=== PATIENT | male | born 1995 | race Caucasian/White ===

== ENCOUNTER 2017-04-01 06:22 | Observation (INO) | payer SELFPAY ==
[2017-04-01] VITALS (8 sets, daily range): BP systolic 90–142; BP diastolic 63–80; PULSE 76–96; RESP 18–20; TEMP 96.1–99.6; O2SAT 96–100
[~2017-04-01] VITALS: Ht 182.9 cm; Wt 71.4 kg
[2017-04-01] MEDS ORDERED: SODIUM CHLOR 0.9% 1000 ML INJ 1,000 ML IV ONE (07:05)
[2017-04-01] MEDS ORDERED: ONDANSETRON HCL 4 MG/2 ML VIAL IV PUSH ONE (07:15)
[2017-04-01] MEDS ORDERED: LORazepam 2 MG/ML VIAL IV PUSH ONE (07:15)
[2017-04-01] MEDS ORDERED: SODIUM CHLORIDE 0.9% FLUSH 10 ML FLUSH IVF PRN (07:15)
[2017-04-01 07:23] LABS: AUTOMATED NEUTROPHIL # 16.6 TH/MM3 (1.8-7.7); BASOPHIL # 0.1 TH/MM3 (0-0.2); BASOPHIL % 0.7 % (0.0-2.0); EOSINOPHIL # 0.1 TH/MM3 (0-0.4); EOSINOPHIL % 0.5 % (0.0-4.0); HEMATOCRIT 47.4 % (39.0-51.0); LYMPH % 8.2 % (9.0-44.0); LYMPHOCYTE # 1.5 TH/MM3 (1.0-4.8); MEAN CELL VOLUME 88.4 FL (80.0-100.0); MEAN CORPUSCULAR HEMOGLOBIN 30.7 PG (27.0-34.0); MEAN CORPUSCULAR HGB CONC 34.7 % (32.0-36.0); MONO % 2.1 % (0.0-8.0); NEUT % 88.5 % (16.0-70.0); PLATELET COUNT 281 TH/MM3 (150-450); RED BLOOD COUNT 5.36 MIL/MM3 (4.50-5.90); RED CELL DISTRIBUTION WIDTH 11.8 % (11.6-17.2); WHITE BLOOD COUNT 18.7 TH/MM3 (4.0-11.0)
[2017-04-01 07:29] LABS: CHLORIDE 102 MEQ/L (98-107); POTASSIUM 3.6 MEQ/L (3.5-5.1); SODIUM (NA) 140 MEQ/L (136-145)
[2017-04-01 07:32] LABS: ANION GAP 21 MEQ/L (5-15); BICARBONATE 16.8 MEQ/L (21.0-32.0)
[2017-04-01 07:33] LABS: BLOOD UREA NITROGEN 17 MG/DL (7-18)
[2017-04-01 07:35] LABS: GLOMERULAR FILTRATION RATE 69 ML/MIN (>89)
--- NOTE | 2017-04-01 07:35 | PD ---
HPI Chief Complaint: Seizure Time Seen by Provider: 07:04 Travel History International Travel<30 days: No Contact w/Intl Traveler<30days: No Traveled to known affect area: No History of Present Illness HPI 21-year-old male notes drinking alcohol at 8 PM last night in excess. Patient does not recall event. EMS was not available when I evaluated the patient. Report from change of shift was that he had had a seizure. History is significantly limited. Patient denies prior history of seizure PFSH Past Medical History Medical History: Denies Significant Hx Diminished Hearing: No Tetanus Vaccination: < 5 Years Influenza Vaccination: No Past Surgical History Ear Surgery: Yes ("tubes in ears") Social History Alcohol Use: Yes (OFTEN) Tobacco Use: Yes (1 PPD) Substance Use: Yes (DRUG ABUSE - NARCOTICS) Allergies-Medications (Allergen,Severity, Reaction): Coded Allergies: No Known Allergies (Verified , 04/01/17) Reported Meds & Prescriptions Reported Meds & Active Scripts Active Active Prescriptions or Reported Medications Unobtainable Review of Systems Except as stated in HPI: all other systems reviewed are Neg Physical Exam Narrative General: 21 y/o patient in no apparent distress Skin: Warm and dry Eyes: Pupils equal NECK: no pain with range of motion in midline Cardiovascular: Regular rate and rhythm Respiratory: Normal respiratory effort noted, clear to auscultation bilaterally at apices Abdomen: soft, nontender, nondistended Back: No step-offs, midline spine nontender with palpation Extremities: No pain over main joints Neuro: awake, alert, sensation and motor grossly intact Data Data Last Documented VS Vital Signs Date Time Temp Pulse Resp B/P Pulse Ox O2 Delivery O2 Flow Rate FiO2 04/01/17 07:14 96 18 117/63 97 Room Air 04/01/17 06:36 97.7 Orders Complete Blood Count With Diff (04/01/17 07:05) Alcohol (Ethanol) (04/01/17 07:05) Drug Screen, Random Urine (04/01/17 07:05) Electrocardiogram (04/01/17 ) Ct Brain W/O Iv Contrast(Rout) (04/01/17 ) Blood Glucose (04/01/17 07:05) Ecg Monitoring (04/01/17 07:05) Iv Access Insert/Monitor (04/01/17 07:05) Oximetry (04/01/17 07:05) Comprehensive Metabolic Panel (04/01/17 07:05) Sodium Chlor 0.9% 1000 Ml Inj (Ns 1000 M (04/01/17 07:05) Sodium Chloride 0.9% Flush (Ns Flush) (04/01/17 07:15) Urinalysis - C+S If Indicated (04/01/17 07:05) Ct Cerv Spine W/O Contrast (04/01/17 ) Ondansetron Inj (Zofran Inj) (04/01/17 07:15) Lorazepam Inj (Ativan Inj) (04/01/17 07:15) Admit Order (Ed Use Only) (04/01/17 08:30) Labs Laboratory Tests Test 04/01/17 04/01/17 06:45 07:55 White Blood Count 18.7 TH/MM3 Red Blood Count 5.36 MIL/MM3 Hemoglobin 16.5 GM/DL Hematocrit 47.4 % Mean Corpuscular Volume 88.4 FL Mean Corpuscular Hemoglobin 30.7 PG Mean Corpuscular Hemoglobin 34.7 % Concent Red Cell Distribution Width 11.8 % Platelet Count 281 TH/MM3 Mean Platelet Volume 9.4 FL Neutrophils (%) (Auto) 88.5 % Lymphocytes (%) (Auto) 8.2 % Monocytes (%) (Auto) 2.1 % Eosinophils (%) (Auto) 0.5 % Basophils (%) (Auto) 0.7 % Neutrophils # (Auto) 16.6 TH/MM3 Lymphocytes # (Auto) 1.5 TH/MM3 Monocytes # (Auto) 0.4 TH/MM3 Eosinophils # (Auto) 0.1 TH/MM3 Basophils # (Auto) 0.1 TH/MM3 CBC Comment DIFF FINAL Differential Comment Sodium Level 140 MEQ/L Potassium Level 3.6 MEQ/L Chloride Level 102 MEQ/L Carbon Dioxide Level 16.8 MEQ/L Anion Gap 21 MEQ/L Blood Urea Nitrogen 17 MG/DL Creatinine 1.30 MG/DL Estimat Glomerular Filtration 69 ML/MIN Rate Random Glucose 103 MG/DL Calcium Level 8.7 MG/DL Total Bilirubin 0.9 MG/DL Aspartate Amino Transf 22 U/L (AST/SGOT) Alanine Aminotransferase 27 U/L (ALT/SGPT) Alkaline Phosphatase 95 U/L Total Protein 8.3 GM/DL Albumin 4.5 GM/DL Ethyl Alcohol Level LESS THAN 3 MG/DL Urine Collection Type CLEAN CATCH Urine Color YELLOW Urine Turbidity CLEAR Urine pH 5.5 Urine Specific [place] 1.022 Urine Protein 30 mg/dL Urine Glucose (UA) NEG mg/dL Urine Ketones 40 mg/dL Urine Occult Blood SMALL Urine Nitrite NEG Urine Bilirubin NEG Urine Leukocyte Esterase NEG Urine RBC 0-3 /hpf Microscopic Urinalysis Comment CULT NOT INDICATED Urine Opiates Screen POS Urine Barbiturates Screen NEG Urine Amphetamines Screen POS Urine Benzodiazepines Screen NEG Urine Cocaine Screen NEG Urine Cannabinoids Screen POS MDM Medical Decision Making Medical Screen Exam Complete: Yes Emergency Medical Condition: Yes Medical Record Reviewed: Yes (past history confirmed) Interpretation(s) EKG shows NSR, no ST elevation or depression, and no arrhythmias. No significant T-wave inversions. Last [address] 04/01/17 0000 Signed Impressions: Service Date/Time: Saturday, April 01, 2017 07:23 - CONCLUSION: No acute intracranial disease. Manuelito Gomes MD Cervical Spine CT 04/01/17 0000 Signed Impressions: Service Date/Time: Saturday, April 01, 2017 07:23 - CONCLUSION: 1. No fracture or subluxation. Manuelito Gomes MD CBC & BMP Diagram 04/01/17 06:45 Differential Diagnosis Electrolyte abnormality, alcohol abuse, intracranial Narrative Course Will check blood work, CT imaging and dose with Ativan and IV fluids and reevaluate ED workup shows negative alcohol level, urine drug screen is positive for amphetamines, opiates, marijuana; CT shows no acute bleed or fracture. Patient updated and initially hesitant to stay but understands the importance and agrees to admission for further testing. Physician Communication Physician Communication dr farrell agrees to admit Diagnosis Primary Impression: Seizure Scripts Unable to Obtain Active Prescriptions or Reported Meds Aurelia Quintero MD April 01, 2017 07:35
[2017-04-01 07:36] LABS: ALT (GPT) 27 U/L (12-78); AST (GOT) 22 U/L (15-37)
[2017-04-01 07:37] LABS: TOTAL BILIRUBIN ADULT 0.9 MG/DL (0.2-1.0)
[2017-04-01 07:39] LABS: ALKALINE PHOSPHATASE 95 U/L (45-117)
[2017-04-01 07:41] LABS: HEMO FLAGS DIFF FINAL
--- NOTE | 2017-04-01 07:47 | RADHPO ---
EXAM DATE/TIME: 04/01/2017 07:23 [facility] COMPARISON: No previous studies available for comparison. INDICATIONS : New onset seizure with headache. RADIATION DOSE: 57.55 CTDIvol (mGy) MEDICAL HISTORY : None SURGICAL HISTORY : None. ENCOUNTER: Initial ACUITY: 1 day PAIN SCALE: 3/10 LOCATION: cranial TECHNIQUE: Multiple contiguous axial images were obtained of the head. Using automated exposure control and adj ustment of the mA and/or kV according to patient size, radiation dose was kept as low as reasonably a chievable to obtain optimal diagnostic quality images. FINDINGS: CEREBRUM: The ventricles are normal for age. No evidence of midline shift, mass lesion, hemorrhage or acute in farction. No extra-axial fluid collections are seen. POSTERIOR FOSSA: The cerebellum and brainstem are intact. The 4th ventricle is midline. The cerebellopontine angle i s unremarkable. EXTRACRANIAL: The visualized portion of the orbits is intact. SKULL: The calvaria is intact. No evidence of skull fracture. CONCLUSION: No acute intracranial disease. Manuelito Gomes MD on April 01, 2017 at 7:45 Board Certified Radiologist. This report was verified electronically.
[2017-04-01 08:04] LABS: BLOOD, URINE SMALL (NEG); GLUCOSE,URINE NEG (NEG); KETONE, URINE 40 mg/dL (NEG); NITRITE,URINE NEG (NEG); PH, URINE 5.5 (5.0-8.5)
[2017-04-01 08:07] LABS: METHOD OF COLLECTION CLEAN CATCH; URINE COLOR YELLOW (YELLW/STRAW)
[2017-04-01 08:09] LABS: RBC, URINE 0-3 /hpf (0-3)
[2017-04-01 08:10] LABS: COMMENT (UR) CULT NOT INDICATED; CULTURE IF INDICATED CULT NOT INDICATED
[2017-04-01 08:13] LABS: AMPHETAMINE, URINE POS (NEG); BARBITURATES, URINE NEG (NEG); COCAINE, URINE NEG (NEG)
--- NOTE | 2017-04-01 08:14 | RADHPO ---
EXAM DATE/TIME: 04/01/2017 07:23 [facility] COMPARISON: No previous studies available for comparison. INDICATIONS : New onset seizure with headache. RADIATION DOSE: 25.61 CTDIvol (mGy) MEDICAL HISTORY : None SURGICAL HISTORY : None. ENCOUNTER: Initial ACUITY: 1 day PAIN SCALE: 3/10 LOCATION: neck TECHNIQUE: Volumetric scanning of the cervical spine was performed. Multiplanar reconstructions in the sagittal, coronal and oblique axial planes were performed. Using automated exposure control and adjustment o f the mA and/or kV according to patient size, radiation dose was kept as low as reasonably achievable to obtain optimal diagnostic quality images. FINDINGS: VERTEBRAE: Normal vertebral body height. ALIGNMENT: No evidence of subluxation. C2-C3: The bony spinal canal is normal in size. No evidence of disc bulge or herniation. The neural forami na are bilaterally patent. C3-C4: The bony spinal canal is normal in size. No evidence of disc bulge or herniation. The neural forami na are bilaterally patent. C4-C5: The bony spinal canal is normal in size. No evidence of disc bulge or herniation. The neural forami na are bilaterally patent. C5-C6: The bony spinal canal is normal in size. No evidence of disc bulge or herniation. The neural forami na are bilaterally patent. C6-C7: The bony spinal canal is normal in size. No evidence of disc bulge or herniation. The neural forami na are bilaterally patent. C7-T1: The bony spinal canal is normal in size. No evidence of disc bulge or herniation. The neural forami na are bilaterally patent. CONCLUSION: 1. No fracture or subluxation. Manuelito Gomes MD on April 01, 2017 at 8:11 Board Certified Radiologist. This report was verified electronically.
[2017-04-01] MEDS ORDERED: POTASSIUM CHLORIDE 20 MEQ CONTROLLED RELEASE TAB PO ONE (09:15)
[2017-04-01] MEDS ORDERED: ONDANSETRON HCL 4 MG/2 ML VIAL IVP PRN (09:30)
[2017-04-01] MEDS ORDERED: ACETAMINOPHEN 325 MG TAB PO PRN ×2 (09:30)
[2017-04-01] MEDS ORDERED: SODIUM CHLORIDE 0.9% FLUSH 10 ML FLUSH IV FLUSH PRN (09:30)
[2017-04-01] MEDS ORDERED: NALOXONE HCL 0.4 MG/ML AMP IV PRN (09:30)
[2017-04-01] MEDS ORDERED: LORazepam 2 MG/ML VIAL IV PUSH PRN (09:45)
[2017-04-01] MEDS ORDERED: IBUPROFEN 800 MG TAB PO ONE (09:45)
[2017-04-01] MEDS: SODIUM CHLOR 0.9% 1000 ML INJ 1,000 ML IV SCH ×2 (09:49→17:26)
--- NOTE | 2017-04-01 09:53 | HHI.HP ---
[facility] No Primary Care Physician Admission Diagnosis seizure Diagnoses: Chief Complaint: Seizures Travel History International Travel<30 Days: No Contact w/Intl Traveler <30 Da: No Traveled to Known Affected Are: No History of Present Illness The patient is a 21-year-old male who was seen here in 2015 for a similar seizure who is presenting to the hospital after having a seizure. The patient does not recall the episode. He said he woke up and his friend's car with his mouth bloody. There were reports that he was having seizure activity. Details surrounding the episode are unavailable at this time. The patient said that he felt very tired when he came to. He said he had a major headache and was requesting some ibuprofen. The patient says that on the weekends he will typically use substances including amphetamines, Xanax and marijuana. He denies drinking heavily. He says he was at a multiple day concert in [place] this weekend and arrived back home early this morning. His mother was at the bedside and helped provide further history. Apparently the patient has a history of substance abuse and moved to [place] for a period of time to try to get away from substance use. He moved back to [place] in January and has been relapsing. He has had a seizure in 2014 for which she was admitted but he left the hospital AMA at that time. Review of Systems ROS Limitations: Poor Historian Except as stated in HPI: all other systems reviewed are Neg Past Family Social History Past Medical History Previous seizure in 2015 Migraines Allergies: Coded Allergies: No Known Allergies (Verified , 04/01/17) Active Ordered Medications Current Medications Medications (Trade) Dose Ordered Sig/Julita Route Start Time Stop Time Status Last Admin Ibuprofen 800 mg 800 mg ONCE ONCE PO 04/01/17 09:45 04/01/17 09:46 (NS 1000 ml Inj) 1,000 ml @ 100 mls/hr Q10H IV 04/01/17 09:23 04/02/17 05:22 (NS Flush) 2 ml UNSCH PRN IV FLUSH 04/01/17 09:30 (NS Flush) 2 ml BID IV FLUSH 04/01/17 21:00 (Tylenol) 650 mg Q4H PRN PO 04/01/17 09:30 (Zofran Inj) 4 mg Q6H PRN IVP 04/01/17 09:30 (Tylenol) 650 mg Q6H PRN PO 04/01/17 09:30 (Motrin) 400 mg Q6H PRN PO 04/01/17 15:00 (Narcan Inj) 0.4 mg UNSCH PRN IV 04/01/17 09:30 (Motrin) 800 mg Q6H PRN PO 04/01/17 15:00 (Ativan Inj) 2 mg Q2H PRN IV PUSH 04/01/17 09:45 Family History The pt denies pertinent family history. Social History The pt does not smoke. He doesn't drink that much. He uses opiates, amphetamines and MJ regularly. He denies IV drug use. Physical Exam Vital Signs Vital Signs Date Time Temp Pulse Resp B/P Pulse Ox O2 Delivery O2 Flow Rate FiO2 04/01/17 07:14 96 18 117/63 97 Room Air 04/01/17 07:10 77 18 117/63 96 Room Air 04/01/17 06:49 98 Room Air 04/01/17 06:36 97.7 94 18 134/71 96 Physical Exam GENERAL: This is a well-nourished, well-developed patient, in no apparent distress. SKIN: Small, erythematous lesions on face and extremities. HEAD: Atraumatic. Normocephalic. No temporal or scalp tenderness. EYES: Pupils equal round and reactive. Extraocular motions intact. No scleral icterus. No injection or drainage. ENT: Nose without bleeding, purulent drainage or septal hematoma. Throat without erythema, tonsillar hypertrophy or exudate. Uvula midline. Airway patent. Minor lacerations on both sides of the patient's tongue. NECK: Trachea midline. No JVD or lymphadenopathy. Supple, nontender, no meningeal signs. CARDIOVASCULAR: Regular rate and rhythm without murmurs, gallops, or rubs. RESPIRATORY: Clear to auscultation. Breath sounds equal bilaterally. No wheezes , rales, or rhonchi. GASTROINTESTINAL: Abdomen soft, non-tender, nondistended. No hepato-splenomegaly , or palpable masses. No guarding. MUSCULOSKELETAL: Extremities without clubbing, cyanosis, or edema. No joint tenderness, effusion, or edema noted. NEUROLOGICAL: Awake and alert. Cranial nerves II through XII intact. Motor and sensory grossly within normal limits. Five out of 5 muscle strength in all muscle groups. Normal speech. Laboratory Laboratory Tests Test 04/01/17 04/01/17 06:45 07:55 White Blood Count 18.7 Red Blood Count 5.36 Hemoglobin 16.5 Hematocrit 47.4 Mean Corpuscular Volume 88.4 Mean Corpuscular Hemoglobin 30.7 Mean Corpuscular Hemoglobin 34.7 Concent Red Cell Distribution Width 11.8 Platelet Count 281 Mean Platelet Volume 9.4 Neutrophils (%) (Auto) 88.5 Lymphocytes (%) (Auto) 8.2 Monocytes (%) (Auto) 2.1 Eosinophils (%) (Auto) 0.5 Basophils (%) (Auto) 0.7 Neutrophils # (Auto) 16.6 Lymphocytes # (Auto) 1.5 Monocytes # (Auto) 0.4 Eosinophils # (Auto) 0.1 Basophils # (Auto) 0.1 CBC Comment DIFF FINAL Differential Comment Sodium Level 140 Potassium Level 3.6 Chloride Level 102 Carbon Dioxide Level 16.8 Anion Gap 21 Blood Urea Nitrogen 17 Creatinine 1.30 Estimat Glomerular Filtration 69 Rate Random Glucose 103 Calcium Level 8.7 Total Bilirubin 0.9 Aspartate Amino Transf 22 (AST/SGOT) Alanine Aminotransferase 27 (ALT/SGPT) Alkaline Phosphatase 95 Total Protein 8.3 Albumin 4.5 Ethyl Alcohol Level LESS THAN 3 Urine Collection Type CLEAN CATCH Urine Color YELLOW Urine Turbidity CLEAR Urine pH 5.5 Urine Specific [place] 1.022 Urine Protein 30 Urine Glucose (UA) NEG Urine Ketones 40 Urine Occult Blood SMALL Urine Nitrite NEG Urine Bilirubin NEG Urine Leukocyte Esterase NEG Urine RBC 0-3 Microscopic Urinalysis Comment CULT NOT INDICATED Urine Opiates Screen POS Urine Barbiturates Screen NEG Urine Amphetamines Screen POS Urine Benzodiazepines Screen NEG Urine Cocaine Screen NEG Urine Cannabinoids Screen POS Result Diagram: 04/01/1745 04/01/1745 Imaging Last Impressions Head CT 04/01/17 0000 Signed Impressions: Service Date/Time: Saturday, April 01, 2017 07:23 - CONCLUSION: No acute intracranial disease. Manuelito Gomes MD Cervical Spine CT 04/01/17 0000 Signed Impressions: Service Date/Time: Saturday, April 01, 2017 07:23 - CONCLUSION: 1. No fracture or subluxation. Manuelito Gomes MD Assessment and Plan Assessment and Plan Seizure Second episode. The pt's tox screen was positive for opiates, amphetamines and cannabinoids. The patient's blood alcohol level was less than 3. He did bite his tongue and was bleeding from his mouth following this seizure. CT of the brain and cervical spine were unremarkable. - EEG pending. - Check an MRI of the brain. - neurology consult requested. - Seizure precautions, neuro checks. - Ativan as needed. - Check CK-MB level. Metabolic acidosis With an elevated anion gap. Likely secondary to seizure. The pt appears stable at this time. - IV fluids. - Check a lactic acid level. Leukocytosis Likely secondary to seizure. UA unremarkable. - Continue to monitor. - check a CXR. Substance use The patient has recently relapsed. - Cessation instruction. - chemical research worker consult. PPx: SCDs. Code Status Full. Discussed Condition With Dr. Quintero, pt, pt's mother, nurse. Eligio Still DO April 01, 2017 09:53
--- NOTE | 2017-04-01 11:06 | RADHPO ---
EXAM DATE/TIME: 04/01/2017 10:30 [facility] COMPARISON: No previous studies available for comparison. INDICATIONS : Seizure, headache. MEDICAL HISTORY : None. SURGICAL HISTORY : None. ENCOUNTER: Initial ACUITY: 1 day PAIN SCORE: 0/10 LOCATION: Bilateral chest FINDINGS: A single view of the chest demonstrates the lungs to be symmetrically aerated without evidence of mas s, infiltrate or effusion. The cardiomediastinal contours are unremarkable. Osseous structures are intact. CONCLUSION: No acute disease. Dat Qureshi MD on April 01, 2017 at 11:04 Board Certified Radiologist. This report was verified electronically.
--- NOTE | 2017-04-01 11:45 | RADHPO ---
EXAM DATE/TIME: 04/01/2017 10:47 [facility] COMPARISON: CT BRAIN W/O CONTRAST, April 01, 2017, 7:23. INDICATIONS : Seizures. MEDICAL HISTORY : None. SURGICAL HISTORY : Ear tubes. ENCOUNTER: Initial ACUITY: 1 day PAIN SCORE: 9/10 LOCATION: Bilateral cranial TECHNIQUE: Multiplanar, multisequence MRI of the brain was performed without contrast. FINDINGS: There is motion artifact. CEREBRUM: The ventricles are normal for age. No evidence of midline shift, mass lesion, hemorrhage or acute in farction. No extraaxial fluid collections are seen. The pituitary gland and suprasellar cistern are normal in configuration. WHITE MATTER: No significant signal abnormalities are seen in the white matter. POSTERIOR FOSSA: The cerebellum and brainstem are intact. The 4th ventricle is midline. The cerebellopontine angle is unremarkable. The cerebellar tonsils are normal in position. DIFFUSION IMAGING: No focal areas of restricted diffusion are seen. No evidence of acute infarction. EXTRACRANIAL: The visualized portions of the orbits and paranasal sinuses are unremarkable. CONCLUSION: Limited study secondary to motion artifact otherwise unremarkable MRI brain. Manuelito Gomes MD on April 01, 2017 at 11:41 Board Certified Radiologist. This report was verified electronically.
[2017-04-01] MEDS ORDERED: ACETAMIN 325 MG/BUTALBITAL 50 MG/CAFFEINE 40 MG TAB PO PRN (13:15)
[2017-04-01] MEDS ORDERED: IBUPROFEN 800 MG TAB PO PRN (15:00)
[2017-04-01] MEDS ORDERED: IBUPROFEN 400 MG TAB PO PRN (15:00)
[2017-04-01] MEDS: SODIUM CHLORIDE 0.9% FLUSH 10 ML FLUSH IV FLUSH SCH (22:11)
--- NOTE | 2017-04-01 22:40 | EKG ---
Date Performed: 04/01/2017 Time Performed: 06:37:12 PTAGE: 21 years EKG: Sinus rhythm . Rightward axis Borderline ECG NO PREVIOUS TRACING DOCTOR: Dat Aguilar Interpretating Date/Time 04/01/2017 22:39:41
[2017-04-02] VITALS: BP 131/87; PULSE 65; RESP 20; TEMP 96.7; O2SAT 99
[2017-04-02 05:27] LABS: HEMATOCRIT 47.2 % (39.0-51.0); MEAN CORPUSCULAR HEMOGLOBIN 29.8 PG (27.0-34.0); MEAN CORPUSCULAR HGB CONC 33.5 % (32.0-36.0); PLATELET COUNT 222 TH/MM3 (150-450); RED BLOOD COUNT 5.31 MIL/MM3 (4.50-5.90); RED CELL DISTRIBUTION WIDTH 12.1 % (11.6-17.2); REVIEW FLAG FINAL; WHITE BLOOD COUNT 11.7 TH/MM3 (4.0-11.0)
[2017-04-02 05:33] LABS: POTASSIUM 3.8 MEQ/L (3.5-5.1)
--- NOTE | 2017-04-02 05:52 | MB ---
cc: CHANDNI CONRAD DATE OF CONSULTATION 04/01/2017 REASON FOR CONSULTATION Seizure. HISTORY OF PRESENT ILLNESS Mr. Jorge is a 21-year-old male who has brought in to the [facility] after drinking an excessive amount of alcohol last night. The patient does not have recollection of the event. There was a possible seizure reported. The patient denies alcohol intake but as per medical records there is a mention of alcohol. The patient has had similar episode in 2014 and left AMA. The patient does not recall what happened yesterday. He states that he was at "my jimenez's house" and they found him with his mouth foaming blood and they reported seizure activity. The next thing the patient remembers is being in the hospital. During the encounter he is complaining of headache and he states that he has a "major headache" and he was diagnosed with migraine headache where there is pain, sometimes one-sided or two-sided. Usually it is constant and throbbing in nature, "excruciating". He is not on prescription medication for the headaches. He reports that sometimes it is very severe to the point that, "I start puking." The patient has history of polysubstance abuse and moved to [place] for a period to get away from substance abuse. The patient denies use of substances but admits to using marijuana, but review of the medical records revealed this information. He denies drinking alcohol. The patient denies history of loss of sphincter control. REVIEW OF SYSTEMS A 12-point review of systems is negative except for what is stated in the HPI. PAST MEDICAL HISTORY Previous episodes. Last seizure in 2014. Migraines. ALLERGIES No known allergies. MEDICATIONS Ibuprofen and Tylenol [id number]. FAMILY HISTORY Noncontributory. SOCIAL HISTORY The patient denies smoking. He states he does not drink alcohol much. He uses opiates, amphetamines and marijuana regularly. Denies IV drug abuse. EXAMINATION GENERAL: Awake, alert, oriented to time, person and place, not in acute distress. HEENT: Atraumatic, normocephalic. Tongue is bitten both sides at the sides. Intact hearing and intact vision. NECK: Trachea in the midline. No signs of meningeal irritation. Supple. CARDIOVASCULAR: Regular rate and rhythm. RESPIRATORY: Clear to auscultation. No wheezes. GASTROINTESTINAL: Soft abdomen, nontender. MUSCULOSKELETAL: Extremities without clubbing, cyanosis or edema. No joint tenderness. Moves all extremities. NEUROLOGIC: Awake, alert, oriented to time, person and place. Intact speech and intact memory. Intact speech content. Cranial nerves II-XII are grossly intact. Motor examination 5/5 bilateral, symmetrical. Normal tone. No abnormal movement. Intact sensation bilateral, symmetrical to superficial touch and pain. [id number] and [id number] intact. Reflexes 2+ bilateral and symmetrical. Intact stance. No ataxia. Normal gait. LABORATORY DATA - White blood cells 18.7, hemoglobin 16.5, platelet 281, neutrophilia. Sodium 140, potassium 3.6, anion gap 21, total protein 8.3, TSH low at 0.351. UDS positive for opiates, amphetamines and cannabinoids. IMAGING STUDIES - Head CT scan with no acute intracranial abnormality. - MRI limited study due to motion artifacts, otherwise unremarkable. - Cervical spine CT - No fracture or subluxation. DIAGNOSTIC IMPRESSION 1. Seizures/breakthrough seizures. - Likely etiology is alcohol-related/polysubstance related seizures. - No family history or personal history of seizures. No history of head trauma. Examination is nonfocal. Neuroradiology is unremarkable. 2. Leukocytosis - Possible etiology seizure. PLAN -. Neuro checks q. 4 hours. -. EEG. - Seizure precautions. - Fall precautions. - Cessation instruction for polysubstance, social sciences department chair recommendations are appreciated. - Monitor vital signs and temperature. - Follow up on WBC, to rule out an infection Thank you for the opportunity to participate in the care of your patient. Chandni Conrad MD RGO/AKIKO /4:56 PM /5:38 AM CAROLINE
[2017-04-02 06:10] LABS: BICARBONATE 27.9 MEQ/L (21.0-32.0); MAGNESIUM 2.5 MG/DL (1.5-2.5)
[2017-04-02 08:00] VITALS: BP 129/80; PULSE 73; RESP 16; TEMP 97.8; O2SAT 100
[2017-04-02] MEDS: SODIUM CHLORIDE 0.9% FLUSH 10 ML FLUSH IV FLUSH SCH (09:22)
[2017-04-02 12:00] VITALS: BP 118/80; PULSE 77; RESP 16; TEMP 98; O2SAT 100
--- NOTE | 2017-04-02 12:15 | HHI.PR ---
Subjective Remarks The patient was feeling well and wanted to go home. He said the EEG was done this morning. He had no further headaches. He said he would still be living with his mother after discharge. He said he has been at [facility] before and it did help a little with his substance use. Objective Vitals Vital Signs Date Time Temp Pulse Resp B/P Pulse Ox O2 Delivery O2 Flow Rate FiO2 04/02/17 08:00 97.8 73 16 129/80 100 04/02/17 00:00 96.7 65 20 131/87 99 04/01/17 20:00 98.1 76 20 135/71 99 04/01/17 16:00 98.7 82 18 121/80 97 I/O 04/01/17 04/01/17 04/01/17 04/02/17 04/02/17 04/02/17 07:00 15:00 23:00 07:00 15:00 23:00 Intake Total 1900 ml 480 ml 480 ml Output Total 450 ml Balance 1450 ml 480 ml 480 ml Intake Oral 480 ml 480 ml IV Total 1900 ml Output Urine Total 450 ml # Voids 1 2 1 # Bowel Movements 0 0 Result Diagram: 04/02/17 0455 04/02/17 0455 Imaging Last Impressions Head CT 04/01/17 0000 Signed Impressions: Service Date/Time: Saturday, April 01, 2017 07:23 - CONCLUSION: No acute intracranial disease. Manuelito Gomes MD Chest X-Ray 04/01/17 0000 Signed Impressions: Service Date/Time: Saturday, April 01, 2017 10:30 - CONCLUSION: No acute disease. Dat Qureshi MD Cervical Spine CT 04/01/17 0000 Signed Impressions: Service Date/Time: Saturday, April 01, 2017 07:23 - CONCLUSION: 1. No fracture or subluxation. Manuelito Gomes MD Brain MRI 04/01/17 0000 Signed Impressions: Service Date/Time: Saturday, April 01, 2017 10:47 - CONCLUSION: Limited study secondary to motion artifact otherwise unremarkable MRI brain. Manuelito Gomes MD Objective Remarks GENERAL: This is a well-nourished, well-developed patient, in no apparent distress. SKIN: Small, erythematous lesions on face and extremities. HEAD: Atraumatic. Normocephalic. No temporal or scalp tenderness. EYES: Pupils equal round and reactive. Extraocular motions intact. No scleral icterus. No injection or drainage. ENT: Nose without bleeding, purulent drainage or septal hematoma. Throat without erythema, tonsillar hypertrophy or exudate. Uvula midline. Airway patent. Minor lacerations on both sides of the patient's tongue. NECK: Trachea midline. No JVD or lymphadenopathy. Supple, nontender, no meningeal signs. CARDIOVASCULAR: Regular rate and rhythm without murmurs, gallops, or rubs. RESPIRATORY: Clear to auscultation. Breath sounds equal bilaterally. No wheezes , rales, or rhonchi. GASTROINTESTINAL: Abdomen soft, non-tender, nondistended. No hepato-splenomegaly , or palpable masses. No guarding. MUSCULOSKELETAL: Extremities without clubbing, cyanosis, or edema. No joint tenderness, effusion, or edema noted. NEUROLOGICAL: Awake and alert. Cranial nerves II through XII intact. Motor and sensory grossly within normal limits. Five out of 5 muscle strength in all muscle groups. Normal speech. PSYCH: Mood and affect appropriate. Procedures None. Medications and IVs Current Medications Medications (Trade) Dose Ordered Sig/Julita Route Start Time Stop Time Status Last Admin (NS Flush) 2 ml UNSCH PRN IV FLUSH 04/01/17 09:30 (NS Flush) 2 ml BID IV FLUSH 04/01/17 21:00 04/02/17 09:22 (Tylenol) 650 mg Q4H PRN PO 04/01/17 09:30 (Zofran Inj) 4 mg Q6H PRN IVP 04/01/17 09:30 (Tylenol) 650 mg Q6H PRN PO 04/01/17 09:30 (Motrin) 400 mg Q6H PRN PO 04/01/17 15:00 04/01/17 17:25 (Narcan Inj) 0.4 mg UNSCH PRN IV 04/01/17 09:30 (Motrin) 800 mg Q6H PRN PO 04/01/17 15:00 (Ativan Inj) 2 mg Q2H PRN IV PUSH 04/01/17 09:45 (Fioricet 325-50-40) 1 tab Q6H PRN PO 04/01/17 13:15 04/01/17 13:28 A/P Assessment and Plan Seizure Second episode. Both seizures were in the setting of drug use. The pt's tox screen was positive for opiates, amphetamines and cannabinoids. The patient's blood alcohol level was less than 3. He did bite his tongue and was bleeding from his mouth following this seizure. CT of the brain and cervical spine were unremarkable. MRI brain unremarkable. Neurology consult appreciated. - EEG pending. - Seizure precautions, neuro checks. - Ativan as needed for seizures. - follow up with neurology. Metabolic acidosis With an elevated anion gap. Likely secondary to seizure. The pt appears stable at this time. S/p IVFs. - Resolved. Leukocytosis Likely secondary to seizure. UA and CXR unremarkable. Improved. - Continue to monitor. Substance use The patient has recently relapsed. - Cessation instruction. - industrial services worker consult. PPx: SCDs. Discharge Planning Awaiting EEG. Likely d/c home later today. Eligio Still DO April 02, 2017 12:15
--- NOTE | 2017-04-02 17:05 | HHI.DCPOC ---
Discharge Care Plan Diagnosis: (1) Seizure (2) Drug use Goals to Promote Your Health * To prevent worsening of your condition and complications * To maintain your health at the optimal level Directions to Meet Your Goals Take your medications as prescribed Follow your dietary instruction Follow activity as directed Keep your appointments as scheduled Take your immunizations and boosters as scheduled If your symptoms worsen call your PCP, if no PCP go to Urgent Care Center or Emergency Room Smoking is Dangerous to Your Health. Avoid second hand smoke Call the 24-hour hour crisis hotline for domestic abuse at Eligio Still DO April 02, 2017 17:05
--- NOTE | 2017-04-02 17:51 | PD.AMA ---
Against Medical Advice Note Diagnosis: (1) Seizure (2) Drug use Discharge Disposition: Against Medical Advice Pt Condition on Discharge: Stable Recommended Treatment Course Review results of EEG. Monitoring WBC count. Further follow-up with neurology. AMA Statement Patient Yeison Jorge has decided to leave the hospital against medical advice. This patient has the capacity to refuse care and understands the risks of leaving, including permanent disability and/or , and has had an opportunity to ask questions about his condition. The patient has been informed that he may return for care at any time, and follow up has been arranged/ advised. Eligio Still DO April 02, 2017 17:51
--- NOTE | 2017-04-02 19:16 | MG ---
cc: FLORIAN LANG Sex: Jeimy [facility] [id number] HISTORY: A 21-year-old man for seizure, heavy alcohol use, amphetamines, opiates, marijuana. DESCRIPTION: The recording shows diffuse beta rhythms. The recording overall is synchronous and symmetric. A lot of muscle and blink artifact is seen. Eye movement artifact. Photic stimulation is performed without significant posterior driving. Hyperventilation was performed with some high amplitude 3 Hz slowing symmetric bilateral at epoch 50 without any epileptiform activity with good effort in the hyperventilation stage. The patient appears to fall asleep with some stage II sleep activity which is synchronous and symmetric. IMPRESSION Some diffuse beta rhythms likely medication effect. I do not see any epileptiform or seizure activity noted. Overall general unremarkable recording. MD GERHARD Jacobs/JOE /6:16 PM /7:10 PM
== END 2017-04-02 17:29 | disposition left against medical advice (07) ==
LOC: PHED 06:22 → PHEDA 08:31 → PH3B 09:58
PROVIDERS: ADMIT Hospitalist; ATTEND Hospitalist
DX: R56.9 Unspecified convulsions (principal); F12.90 Cannabis use, unspecified, uncomplicated; E87.2 Acidosis; D72.829 Elevated white blood cell count, unspecified; R94.31 Abnormal electrocardiogram [ECG] [EKG]
CPT/HCPCS: 70450; 70551; 71010; 72125; 80048; 80053; 80307; 81001; 82550; 83605; 83735; 84443; 85025; 85027; 87040; 93005; 95819; 96361; 96374; 96375; 99285; G0378; J2060; J2405; J7030